=== PATIENT | female | born 1960 | race African-American/Black ===

== ENCOUNTER 2017-12-09 06:18 | Day surgery (SDC) | payer OTHER ==
[2017-12-09] MEDS ORDERED: HEPARIN 1000 UNITS/NS (A-LINE) 1,000 ML (07:10)
[2017-12-09] MEDS ORDERED: FENTAnyl 50 MCG/ML VIAL (07:10)
[2017-12-09] MEDS ORDERED: LIDOCAINE 1% (MDV) 10 ML INJ (07:10)
[2017-12-09] MEDS ORDERED: CEFAZOLIN 1 GM/50 ML (PMX) 50 ML IVPB (07:10)
[2017-12-09] MEDS ORDERED: MIDAZOLAM 1 MG/ML 2 ML INJ (07:10)
[2017-12-09] MEDS ORDERED: POLYMYXIN/BACITRACIN 1L IRRIG (07:13)
[2017-12-09] MEDS ORDERED: HEPARIN 1000 UNITS/ML 10 ML INJ (08:11)
[2017-12-09] MEDS ORDERED: HYDROCODONE/APAP (10/325) TAB PO (11:30)
== END 2017-12-09 12:00 | disposition home or self-care (01) ==
LOC: CCL 06:18 → SDS 06:18 → CCL 12:00
DX: C76.0 Malignant neoplasm of head, face and neck (principal)
CPT/HCPCS: 36561; 75827

== ENCOUNTER 2018-05-25 12:09 | Inpatient (IN) | payer OTHER ==
[2018-05-25 13:29] LABS: ADD MAN DIFF? NO
[2018-05-25 13:36] LABS: WHITE BLOOD COUNT 4.8 10^3/ul (4.8-10.8)
[2018-05-25 13:36] LABS: BASOPHIL # 0.1 10^3/ul (0.0-0.1); EOSINOPHILS # 0.3 10^3/ul (0.0-0.5); EOSINOPHILS % 5.4 % (0.0-7.0); HEMATOCRIT 33.1 % (37.0-47.0); HEMOGLOBIN 10.7 g/dl (12.0-16.0); LYMPHOCYTES # 0.7 10^3/ul (0.8-2.9); LYMPHOCYTES % 14.8 % (15.0-51.0); MEAN CORPUSCULAR HEMOGLOBIN 32.7 pg (29.0-33.0); MEAN CORPUSCULAR HGB CONC 32.3 g/dl (32.0-37.0); MEAN CORPUSCULAR VOLUME 101.2 fl (82.0-101.0); MONOCYTE # 0.6 10^3/ul (0.3-0.9); MONOCYTES % 12.5 % (0.0-11.0); NEUTROPHIL # 3.1 10^3/ul (1.6-7.5); NEUTROPHILS % 65.7 % (39.0-77.0); PLATELET COUNT 288 10^3/UL (140-415); RED BLOOD COUNT 3.27 10^6/ul (4.20-5.40); RED CELL DISTRIBUTION WIDTH 16.6 % (11.5-14.5)
[2018-05-25 13:53] LABS: ANION GAP 14 (5-13); BLOOD UREA NITROGEN 5 mg/dl (7-20); CALCIUM 8.9 mg/dl (8.4-10.2); CARBON DIOXIDE 26 mmol/L (21-31); CHLORIDE 100 mmol/L (97-110); CREATININE 0.51 mg/dl (0.44-1.00); Estimated GFR > 60 mL/min (>60); GLUCOSE 77 mg/dl (70-220); POTASSIUM 3.7 mmol/L (3.5-5.1); SODIUM 140 mmol/L (135-144)
[2018-05-25 13:55] LABS: INR 1.03; PROTIME 13.6 Sec (11.9-14.9); PT RATIO 1.1
[2018-05-25] MEDS: PIPER-TAZO 3.375 GM IV (PMX) 100 ML IVPB (15:00)
[2018-05-25] MEDS: SOD CHLORIDE 0.9% 500 ML IV (15:00)
[2018-05-25] MEDS ORDERED: VANCOMYCIN 1 GM (PMX) 250 ML IVPB (15:00)
[2018-05-25] MEDS ORDERED: PIPER-TAZO 3.375 GM IV (PMX) 100 ML IVPB ×2 (15:00→18:00)
[2018-05-25] MEDS: SOD CHLORIDE 0.9% 100 ML (15:28)
[2018-05-25] MEDS: IOHEXOL 300MG/ML 150 ML BTL (15:28)
[2018-05-25] MEDS ORDERED: VANCOMYCIN IV PER PHARMACY XX (15:30)
[2018-05-25] MEDS ORDERED: OXYCODONE/ACETAMINOPHEN (5/325) TAB PO (15:30)
[2018-05-25] MEDS: LORAZEPAM 2 MG INJ IV ×2 (15:52→23:36)
[2018-05-25] MEDS: HYDROmorphONE 0.5 MG/0.5 ML SYG IV (15:59)
[2018-05-25] MEDS: SOD CHLORIDE 0.9% 1,000 ML IV (17:37)
[2018-05-25] MEDS: VANCOMYCIN 1 GM 250 ML IVPB (17:41)
[2018-05-25] MEDS ORDERED: HYDROmorphONE 1 MG/ML SYG (19:06)
[2018-05-25] MEDS: HYDROmorphONE 1 MG/ML SYG IV (19:07)
[2018-05-25] MEDS: HYDROmorphONE 2 MG/ML SYG IV (21:51)
[2018-05-26] MEDS: PIPER-TAZO 3.375 GM IV (PMX) 100 ML IVPB ×5 (01:27→23:35)
[2018-05-26] MEDS: HYDROmorphONE 2 MG/ML SYG IV ×7 (03:29→22:26)
[2018-05-26] MEDS: PANTOPRAZOLE 40 MG INJ IV (06:24)
[2018-05-26] MEDS: VANCOMYCIN 750 MG in SOD CHLORIDE 0.9% 150 ML IVPB ×2 (07:13→18:38)
[2018-05-26] MEDS: IOHEXOL 300MG/ML 150 ML BTL (10:19)
[2018-05-26] MEDS: SOD CHLORIDE 0.9% 100 ML (10:19)
[2018-05-26 11:24] LABS: ADD MAN DIFF? NO
[2018-05-26 11:27] LABS: WHITE BLOOD COUNT 4.6 10^3/ul (4.8-10.8)
[2018-05-26 11:27] LABS: ABNORMAL IP MESSAGE 1; BASOPHILS % 0.9 % (0.0-2.0); EOSINOPHILS # 0.2 10^3/ul (0.0-0.5); EOSINOPHILS % 4.6 % (0.0-7.0); HEMATOCRIT 32.4 % (37.0-47.0); HEMOGLOBIN 10.6 g/dl (12.0-16.0); LYMPHOCYTES # 0.5 10^3/ul (0.8-2.9); LYMPHOCYTES % 11.8 % (15.0-51.0); MEAN CORPUSCULAR HGB CONC 32.7 g/dl (32.0-37.0); MEAN CORPUSCULAR VOLUME 100.9 fl (82.0-101.0); MONOCYTE # 0.5 10^3/ul (0.3-0.9); MONOCYTES % 10.5 % (0.0-11.0); NEUTROPHIL # 3.3 10^3/ul (1.6-7.5); PLATELET COUNT 257 10^3/UL (140-415); RED BLOOD COUNT 3.21 10^6/ul (4.20-5.40); RED CELL DISTRIBUTION WIDTH 16.5 % (11.5-14.5)
[2018-05-26 11:42] LABS: POSITIVE DIFF @See below
[2018-05-26 11:48] LABS: ALANINE AMINOTRANSFERASE 8 IU/L (13-69); ALBUMIN 2.8 g/dl (3.3-4.9); ALBUMIN/GLOBULIN RATIO 0.82; ALKALINE PHOSPHATASE 156 IU/L (42-121); ANION GAP 7 (5-13); ASPARTATE AMINO TRANSFERASE 26 IU/L (15-46); BILIRUBIN,INDIRECT 0.2 mg/dl (0-1.1); BILIRUBIN,TOTAL 0.2 mg/dl (0.2-1.3); BLOOD UREA NITROGEN 5 mg/dl (7-20); CALCIUM 8.4 mg/dl (8.4-10.2); CARBON DIOXIDE 27 mmol/L (21-31); CHLORIDE 103 mmol/L (97-110); CREATININE 0.49 mg/dl (0.44-1.00); Estimated GFR > 60 mL/min (>60); GLUCOSE 102 mg/dl (70-220); MAGNESIUM 1.8 mg/dl (1.7-2.5); POTASSIUM 3.8 mmol/L (3.5-5.1); SODIUM 137 mmol/L (135-144); TOTAL PROTEIN 6.2 g/dl (6.1-8.1)
[2018-05-26] MEDS: LORAZEPAM 2 MG INJ IV ×2 (12:45→20:28)
[2018-05-26] MEDS: NICOTINE (21 MG/24 HR) PATCH TRANSDERM (14:14)
[2018-05-26] MEDS: SOD CHLORIDE 0.9% 1,000 ML IV (15:03)
[2018-05-26] MEDS: ZOLPIDEM 5 MG TAB PO (22:23)
[2018-05-27] MEDS: HYDROmorphONE 2 MG/ML SYG IV ×9 (02:01→22:11)
[2018-05-27] MEDS: LORAZEPAM 2 MG INJ IV ×2 (03:12→08:26)
[2018-05-27] MEDS: SOD CHLORIDE 0.9% 1,000 ML IV ×2 (03:43)
[2018-05-27] MEDS: PIPER-TAZO 3.375 GM IV (PMX) 100 ML IVPB ×3 (05:01→17:36)
[2018-05-27] MEDS: PANTOPRAZOLE 40 MG INJ IV (05:01)
[2018-05-27 05:43] LABS: ADD MAN DIFF? NO
[2018-05-27 05:45] LABS: BASOPHILS % 0.9 % (0.0-2.0); EOSINOPHILS # 0.3 10^3/ul (0.0-0.5); EOSINOPHILS % 5.4 % (0.0-7.0); HEMATOCRIT 31.8 % (37.0-47.0); HEMOGLOBIN 10.6 g/dl (12.0-16.0); LYMPHOCYTES # 0.6 10^3/ul (0.8-2.9); LYMPHOCYTES % 13.4 % (15.0-51.0); MEAN CORPUSCULAR HEMOGLOBIN 33.1 pg (29.0-33.0); MEAN CORPUSCULAR HGB CONC 33.3 g/dl (32.0-37.0); MEAN CORPUSCULAR VOLUME 99.4 fl (82.0-101.0); MONOCYTE # 0.5 10^3/ul (0.3-0.9); NEUTROPHIL # 3.2 10^3/ul (1.6-7.5); NEUTROPHILS % 69.1 % (39.0-77.0); PLATELET COUNT 296 10^3/UL (140-415); RED CELL DISTRIBUTION WIDTH 15.9 % (11.5-14.5)
[2018-05-27 05:45] LABS: WHITE BLOOD COUNT 4.6 10^3/ul (4.8-10.8)
[2018-05-27] MEDS: VANCOMYCIN 750 MG in SOD CHLORIDE 0.9% 150 ML IVPB (06:03)
[2018-05-27 06:23] LABS: ANION GAP 6 (5-13); CALCIUM 8.3 mg/dl (8.4-10.2); CARBON DIOXIDE 27 mmol/L (21-31); CHLORIDE 104 mmol/L (97-110); CREATININE 0.48 mg/dl (0.44-1.00); Estimated GFR > 60 mL/min (>60); GLUCOSE 84 mg/dl (70-220); MAGNESIUM 1.6 mg/dl (1.7-2.5); PHOSPHORUS 3.9 mg/dl (2.5-4.9); POTASSIUM 3.2 mmol/L (3.5-5.1); SODIUM 137 mmol/L (135-144)
[2018-05-27 06:27] LABS: BLOOD UREA NITROGEN < 2 mg/dl (7-20)
[2018-05-27 06:28] LABS: VANCOMYCIN,TROUGH 9.1 ug/ml (10.0-20.0)
[2018-05-27] MEDS: NICOTINE (21 MG/24 HR) PATCH TRANSDERM (07:35)
[2018-05-27] MEDS: POTASSIUM CHLORIDE (SR) 20 MEQ TAB PO ×2 (11:10→13:30)
[2018-05-27] MEDS: MAGNESIUM SULFATE 2 GM/50 ML 50 ML IVPB (11:11)
[2018-05-27] MEDS: METHYLPREDNISOLONE 125 MG INJ IV ×2 (13:09→17:35)
[2018-05-27] MEDS: VANCOMYCIN 1 GM 250 ML IVPB (18:04)
[2018-05-27] MEDS: LORAZEPAM 0.5 MG TAB PO (18:29)
[2018-05-27] MEDS: traZODone 50 MG TAB PO (22:11)
[2018-05-28] MEDS: HYDROmorphONE 2 MG/ML SYG IV ×12 (00:10→23:04)
[2018-05-28] MEDS: METHYLPREDNISOLONE 125 MG INJ IV ×4 (00:19→20:30)
[2018-05-28] MEDS: PIPER-TAZO 3.375 GM IV (PMX) 100 ML IVPB ×5 (00:19→23:09)
[2018-05-28] MEDS: VANCOMYCIN 1 GM 250 ML IVPB ×2 (05:08→18:09)
[2018-05-28] MEDS: PANTOPRAZOLE (EC) 40 MG TAB PO (05:09)
[2018-05-28 07:25] LABS: ADD MAN DIFF? NO
[2018-05-28 07:27] LABS: WHITE BLOOD COUNT 5.9 10^3/ul (4.8-10.8)
[2018-05-28 07:27] LABS: ABNORMAL IP MESSAGE 1; BASOPHILS % 0.2 % (0.0-2.0); HEMATOCRIT 36.9 % (37.0-47.0); HEMOGLOBIN 12.4 g/dl (12.0-16.0); LYMPHOCYTES # 0.4 10^3/ul (0.8-2.9); LYMPHOCYTES % 5.9 % (15.0-51.0); MEAN CORPUSCULAR HEMOGLOBIN 33.2 pg (29.0-33.0); MEAN CORPUSCULAR HGB CONC 33.6 g/dl (32.0-37.0); MEAN CORPUSCULAR VOLUME 98.9 fl (82.0-101.0); MEAN PLATELET VOLUME 10.6 fl (7.4-10.4); MONOCYTE # 0.1 10^3/ul (0.3-0.9); MONOCYTES % 1.5 % (0.0-11.0); NEUTROPHIL # 5.5 10^3/ul (1.6-7.5); NEUTROPHILS % 92.1 % (39.0-77.0); PLATELET COUNT 366 10^3/UL (140-415); RED BLOOD COUNT 3.73 10^6/ul (4.20-5.40); RED CELL DISTRIBUTION WIDTH 15.6 % (11.5-14.5)
[2018-05-28 07:31] LABS: POSITIVE DIFF @See below
[2018-05-28] MEDS: NICOTINE (21 MG/24 HR) PATCH TRANSDERM (08:12)
[2018-05-28 08:22] LABS: ANION GAP 10 (5-13); BLOOD UREA NITROGEN 3 mg/dl (7-20); CALCIUM 8.9 mg/dl (8.4-10.2); CARBON DIOXIDE 22 mmol/L (21-31); CHLORIDE 105 mmol/L (97-110); CREATININE 0.52 mg/dl (0.44-1.00); Estimated GFR > 60 mL/min (>60); GLUCOSE 166 mg/dl (70-220); MAGNESIUM 1.8 mg/dl (1.7-2.5); PHOSPHORUS 3.9 mg/dl (2.5-4.9); POTASSIUM 3.5 mmol/L (3.5-5.1); SODIUM 137 mmol/L (135-144)
[2018-05-28] MEDS: LORAZEPAM 0.5 MG TAB PO ×3 (10:26→23:03)
[2018-05-28] MEDS: POTASSIUM CHLORIDE (SR) 20 MEQ TAB PO (12:29)
[2018-05-28] MEDS: MAGNESIUM OXIDE 400 MG TAB PO (12:29)
[2018-05-28] MEDS: SOD CHLORIDE 0.9% 1,000 ML IV ×2 (15:03→18:09)
[2018-05-28] MEDS: ONDANSETRON 4 MG INJ IV ×2 (17:17→20:47)
[2018-05-28] MEDS: traZODone 50 MG TAB PO (20:30)
[2018-05-28] MEDS: ZOLPIDEM 5 MG TAB PO (20:31)
[2018-05-28] MEDS: ACETAMINOPHEN 325 MG TAB PO (20:46)
[2018-05-29] MEDS: HYDROmorphONE 2 MG/ML SYG IV ×9 (01:06→21:40)
[2018-05-29 04:59] LABS: ADD MAN DIFF? NO
[2018-05-29 05:00] LABS: WHITE BLOOD COUNT 11.3 10^3/ul (4.8-10.8)
[2018-05-29 05:00] LABS: ABNORMAL IP MESSAGE 1; BASOPHILS % 0.1 % (0.0-2.0); HEMATOCRIT 34.9 % (37.0-47.0); HEMOGLOBIN 11.2 g/dl (12.0-16.0); LYMPHOCYTES # 0.2 10^3/ul (0.8-2.9); LYMPHOCYTES % 1.9 % (15.0-51.0); MEAN CORPUSCULAR HEMOGLOBIN 32.8 pg (29.0-33.0); MEAN CORPUSCULAR HGB CONC 32.1 g/dl (32.0-37.0); MEAN CORPUSCULAR VOLUME 102.3 fl (82.0-101.0); MEAN PLATELET VOLUME 10.3 fl (7.4-10.4); MONOCYTE # 0.5 10^3/ul (0.3-0.9); NEUTROPHIL # 10.6 10^3/ul (1.6-7.5); NEUTROPHILS % 93.7 % (39.0-77.0); PLATELET COUNT 298 10^3/UL (140-415); RED BLOOD COUNT 3.41 10^6/ul (4.20-5.40); RED CELL DISTRIBUTION WIDTH 16.2 % (11.5-14.5)
[2018-05-29 05:03] LABS: POSITIVE DIFF @See below
[2018-05-29] MEDS: PIPER-TAZO 3.375 GM IV (PMX) 100 ML IVPB ×2 (05:13→12:15)
[2018-05-29] MEDS: PANTOPRAZOLE (EC) 40 MG TAB PO (05:14)
[2018-05-29] MEDS: LORAZEPAM 0.5 MG TAB PO ×2 (05:14→20:22)
[2018-05-29 05:18] LABS: ANION GAP 8 (5-13); BLOOD UREA NITROGEN 11 mg/dl (7-20); CALCIUM 8.8 mg/dl (8.4-10.2); CARBON DIOXIDE 21 mmol/L (21-31); CHLORIDE 111 mmol/L (97-110); CREATININE 1.01 mg/dl (0.44-1.00); Estimated GFR > 60 mL/min (>60); GLUCOSE 147 mg/dl (70-220); MAGNESIUM 1.9 mg/dl (1.7-2.5); PHOSPHORUS 4.1 mg/dl (2.5-4.9); POTASSIUM 3.8 mmol/L (3.5-5.1); SODIUM 140 mmol/L (135-144)
[2018-05-29 05:26] LABS: VANCOMYCIN,TROUGH 26.5 ug/ml (10.0-20.0)
[2018-05-29] MEDS: NICOTINE (21 MG/24 HR) PATCH TRANSDERM (08:35)
[2018-05-29] MEDS: METHYLPREDNISOLONE 125 MG INJ IV (08:35)
[2018-05-29] MEDS: VENLAFAXINE 37.5 MG TAB PO (12:33)
[2018-05-29] MEDS: VANCOMYCIN 1 GM 250 ML IVPB (17:22)
[2018-05-29] MEDS: traZODone 50 MG TAB PO (20:22)
[2018-05-30] MEDS: SOD CHLORIDE 0.9% 1,000 ML IV (00:11)
[2018-05-30] MEDS: HYDROmorphONE 2 MG/ML SYG IV ×10 (01:21→23:45)
[2018-05-30] MEDS: LORAZEPAM 0.5 MG TAB PO ×2 (04:26→14:41)
[2018-05-30] MEDS: ACETAMINOPHEN 325 MG TAB PO (04:26)
[2018-05-30] MEDS: PANTOPRAZOLE (EC) 40 MG TAB PO (05:09)
[2018-05-30 06:10] LABS: ADD MAN DIFF? NO
[2018-05-30 06:25] LABS: BASOPHILS % 0.1 % (0.0-2.0); EOSINOPHILS % 0.3 % (0.0-7.0); HEMOGLOBIN 11.2 g/dl (12.0-16.0); LYMPHOCYTES # 0.8 10^3/ul (0.8-2.9); LYMPHOCYTES % 10.6 % (15.0-51.0); MEAN CORPUSCULAR HEMOGLOBIN 32.9 pg (29.0-33.0); MEAN CORPUSCULAR VOLUME 102.9 fl (82.0-101.0); MEAN PLATELET VOLUME 10.7 fl (7.4-10.4); MONOCYTE # 0.9 10^3/ul (0.3-0.9); MONOCYTES % 12.2 % (0.0-11.0); NEUTROPHIL # 5.6 10^3/ul (1.6-7.5); NEUTROPHILS % 76.5 % (39.0-77.0); PLATELET COUNT 315 10^3/UL (140-415)
[2018-05-30 06:25] LABS: WHITE BLOOD COUNT 7.3 10^3/ul (4.8-10.8)
[2018-05-30 06:53] LABS: ANION GAP 8 (5-13); BLOOD UREA NITROGEN 14 mg/dl (7-20); CALCIUM 8.7 mg/dl (8.4-10.2); CARBON DIOXIDE 24 mmol/L (21-31); CHLORIDE 110 mmol/L (97-110); CREATININE 0.92 mg/dl (0.44-1.00); Estimated GFR > 60 mL/min (>60); GLUCOSE 85 mg/dl (70-220); MAGNESIUM 1.8 mg/dl (1.7-2.5); PHOSPHORUS 3.3 mg/dl (2.5-4.9); POTASSIUM 3.1 mmol/L (3.5-5.1); SODIUM 142 mmol/L (135-144)
[2018-05-30] MEDS: METHYLPREDNISOLONE 125 MG INJ IV (08:49)
[2018-05-30] MEDS: VENLAFAXINE 37.5 MG TAB PO (08:49)
[2018-05-30] MEDS: POTASSIUM CHLORIDE (SR) 20 MEQ TAB PO ×2 (08:49→13:15)
[2018-05-30] MEDS: NICOTINE (21 MG/24 HR) PATCH TRANSDERM (08:56)
[2018-05-30] MEDS: ONDANSETRON 4 MG INJ IV (13:15)
[2018-05-30] MEDS: VANCOMYCIN 1 GM 250 ML IVPB (17:32)
[2018-05-30] MEDS: ENOXAPARIN 40 MG/0.4 ML SYG SC (17:37)
[2018-05-30] MEDS: traZODone 50 MG TAB PO (21:39)
[2018-05-30] MEDS: ZOLPIDEM 5 MG TAB PO (21:39)
[2018-05-31] MEDS: HYDROmorphONE 2 MG/ML SYG IV ×11 (02:08→23:38)
[2018-05-31] MEDS: SOD CHLORIDE 0.9% 1,000 ML IV ×2 (02:08→17:25)
[2018-05-31] MEDS: LORAZEPAM 0.5 MG TAB PO ×3 (03:26→23:37)
[2018-05-31 06:06] LABS: ADD MAN DIFF? NO
[2018-05-31] MEDS: PANTOPRAZOLE (EC) 40 MG TAB PO (06:08)
[2018-05-31 06:13] LABS: BASOPHILS % 0.4 % (0.0-2.0); EOSINOPHILS # 0.2 10^3/ul (0.0-0.5); EOSINOPHILS % 4.4 % (0.0-7.0); HEMATOCRIT 34.7 % (37.0-47.0); HEMOGLOBIN 11.5 g/dl (12.0-16.0); LYMPHOCYTES # 0.7 10^3/ul (0.8-2.9); LYMPHOCYTES % 14.7 % (15.0-51.0); MEAN CORPUSCULAR HEMOGLOBIN 33.5 pg (29.0-33.0); MEAN CORPUSCULAR HGB CONC 33.1 g/dl (32.0-37.0); MEAN CORPUSCULAR VOLUME 101.2 fl (82.0-101.0); MEAN PLATELET VOLUME 10.8 fl (7.4-10.4); MONOCYTE # 0.8 10^3/ul (0.3-0.9); MONOCYTES % 16.7 % (0.0-11.0); NEUTROPHIL # 3.2 10^3/ul (1.6-7.5); NEUTROPHILS % 63.4 % (39.0-77.0); PLATELET COUNT 319 10^3/UL (140-415); RED BLOOD COUNT 3.43 10^6/ul (4.20-5.40); RED CELL DISTRIBUTION WIDTH 15.9 % (11.5-14.5)
[2018-05-31 07:01] LABS: PHOSPHORUS 3.4 mg/dl (2.5-4.9)
[2018-05-31 07:01] LABS: MAGNESIUM 1.6 mg/dl (1.7-2.5)
[2018-05-31 07:03] LABS: ANION GAP 6 (5-13); BLOOD UREA NITROGEN 8 mg/dl (7-20); CALCIUM 8.6 mg/dl (8.4-10.2); CARBON DIOXIDE 25 mmol/L (21-31); CHLORIDE 109 mmol/L (97-110); CREATININE 0.78 mg/dl (0.44-1.00); Estimated GFR > 60 mL/min (>60); GLUCOSE 83 mg/dl (70-220); POTASSIUM 3.4 mmol/L (3.5-5.1); SODIUM 140 mmol/L (135-144)
[2018-05-31] MEDS: NICOTINE (21 MG/24 HR) PATCH TRANSDERM (08:27)
[2018-05-31] MEDS: METHYLPREDNISOLONE 40 MG INJ IV (08:27)
[2018-05-31] MEDS: VENLAFAXINE 37.5 MG TAB PO (08:27)
[2018-05-31] MEDS: ENOXAPARIN 40 MG/0.4 ML SYG SC (08:48)
[2018-05-31] MEDS: VANCOMYCIN 1 GM 250 ML IVPB (17:19)
[2018-05-31] MEDS: POTASSIUM CHLORIDE (SR) 20 MEQ TAB PO (17:19)
[2018-05-31] MEDS: ZOLPIDEM 5 MG TAB PO (20:16)
[2018-05-31] MEDS: MAGNESIUM SULFATE 3 GM in DEXTROSE 5% 100 ML IVPB (20:17)
[2018-05-31] MEDS: traZODone 50 MG TAB PO (21:37)
[2018-06-01] MEDS: HYDROmorphONE 2 MG/ML SYG IV ×11 (01:59→22:17)
[2018-06-01] MEDS: PANTOPRAZOLE (EC) 40 MG TAB PO (06:12)
[2018-06-01 06:18] LABS: MAGNESIUM 2.6 mg/dl (1.7-2.5)
[2018-06-01 06:19] LABS: ANION GAP 6 (5-13); BLOOD UREA NITROGEN 10 mg/dl (7-20); CALCIUM 8.3 mg/dl (8.4-10.2); CARBON DIOXIDE 24 mmol/L (21-31); CHLORIDE 108 mmol/L (97-110); CREATININE 1.21 mg/dl (0.44-1.00); Estimated GFR 56 mL/min (>60); GLUCOSE 93 mg/dl (70-220); POTASSIUM 3.6 mmol/L (3.5-5.1); SODIUM 138 mmol/L (135-144)
[2018-06-01] MEDS: VENLAFAXINE 37.5 MG TAB PO (08:25)
[2018-06-01] MEDS: METHYLPREDNISOLONE 40 MG INJ IV (08:25)
[2018-06-01] MEDS: NICOTINE (21 MG/24 HR) PATCH TRANSDERM (08:25)
[2018-06-01] MEDS: ENOXAPARIN 40 MG/0.4 ML SYG SC (08:38)
[2018-06-01] MEDS: LORAZEPAM 0.5 MG TAB PO ×2 (13:49→20:54)
[2018-06-01] MEDS: ONDANSETRON 4 MG INJ IV (14:23)
[2018-06-01 18:31] LABS: VANCOMYCIN,TROUGH 18.9 ug/ml (10.0-20.0)
[2018-06-01] MEDS: VANCOMYCIN 1 GM 250 ML IVPB (19:03)
[2018-06-01] MEDS: traZODone 50 MG TAB PO (20:26)
[2018-06-01] MEDS: ZOLPIDEM 5 MG TAB PO (20:54)
[2018-06-02] MEDS: HYDROmorphONE 2 MG/ML SYG IV ×11 (00:41→21:31)
[2018-06-02 05:30] LABS: ADD MAN DIFF? NO
[2018-06-02 05:33] LABS: WHITE BLOOD COUNT 7.3 10^3/ul (4.8-10.8)
[2018-06-02 05:33] LABS: ABNORMAL IP MESSAGE 1; BASOPHILS % 0.3 % (0.0-2.0); EOSINOPHILS # 0.4 10^3/ul (0.0-0.5); EOSINOPHILS % 5.1 % (0.0-7.0); HEMATOCRIT 20.7 % (37.0-47.0); LYMPHOCYTES % 13.6 % (15.0-51.0); MEAN CORPUSCULAR HGB CONC 32.4 g/dl (32.0-37.0); MEAN PLATELET VOLUME 10.8 fl (7.4-10.4); MONOCYTE # 1.3 10^3/ul (0.3-0.9); MONOCYTES % 17.3 % (0.0-11.0); NEUTROPHIL # 4.6 10^3/ul (1.6-7.5); NEUTROPHILS % 63.2 % (39.0-77.0); PLATELET COUNT 439 10^3/UL (140-415); RED BLOOD COUNT 2.03 10^6/ul (4.20-5.40); RED CELL DISTRIBUTION WIDTH 15.2 % (11.5-14.5)
[2018-06-02] MEDS: PANTOPRAZOLE (EC) 40 MG TAB PO (05:33)
[2018-06-02 05:39] LABS: POSITIVE DIFF @See below
[2018-06-02 05:42] LABS: HEMOGLOBIN 6.7 g/dl (12.0-16.0)
[2018-06-02 05:57] LABS: PHOSPHORUS 4.3 mg/dl (2.5-4.9)
[2018-06-02 05:57] LABS: MAGNESIUM 2.2 mg/dl (1.7-2.5)
[2018-06-02 06:19] LABS: ANION GAP 6 (5-13); BLOOD UREA NITROGEN 13 mg/dl (7-20); CALCIUM 8.4 mg/dl (8.4-10.2); CARBON DIOXIDE 21 mmol/L (21-31); CHLORIDE 110 mmol/L (97-110); CREATININE 1.91 mg/dl (0.44-1.00); Estimated GFR 33 mL/min (>60); GLUCOSE 87 mg/dl (70-220); POTASSIUM 3.3 mmol/L (3.5-5.1); SODIUM 137 mmol/L (135-144)
[2018-06-02 06:42] LABS: ADD MAN DIFF? NO
[2018-06-02 06:57] LABS: BASOPHILS % 0.2 % (0.0-2.0); EOSINOPHILS # 0.3 10^3/ul (0.0-0.5); EOSINOPHILS % 5.4 % (0.0-7.0); HEMATOCRIT 36.4 % (37.0-47.0); LYMPHOCYTES # 0.7 10^3/ul (0.8-2.9); LYMPHOCYTES % 12.5 % (15.0-51.0); MEAN CORPUSCULAR HEMOGLOBIN 33.1 pg (29.0-33.0); MEAN CORPUSCULAR VOLUME 100.3 fl (82.0-101.0); MEAN PLATELET VOLUME 10.8 fl (7.4-10.4); MONOCYTE # 0.9 10^3/ul (0.3-0.9); MONOCYTES % 17.1 % (0.0-11.0); NEUTROPHIL # 3.6 10^3/ul (1.6-7.5); NEUTROPHILS % 64.4 % (39.0-77.0); PLATELET COUNT 354 10^3/UL (140-415); RED BLOOD COUNT 3.63 10^6/ul (4.20-5.40); RED CELL DISTRIBUTION WIDTH 15.4 % (11.5-14.5)
[2018-06-02 06:57] LABS: WHITE BLOOD COUNT 5.5 10^3/ul (4.8-10.8)
[2018-06-02] MEDS: NICOTINE (21 MG/24 HR) PATCH TRANSDERM (08:36)
[2018-06-02] MEDS: predniSONE 10 MG TAB PO (08:37)
[2018-06-02] MEDS: VENLAFAXINE 37.5 MG TAB PO (08:37)
[2018-06-02] MEDS: ACETAMINOPHEN 325 MG TAB PO (08:41)
[2018-06-02] MEDS: ENOXAPARIN 40 MG/0.4 ML SYG SC (08:45)
[2018-06-02] MEDS: POTASSIUM CHLORIDE (SR) 20 MEQ TAB PO (10:02)
[2018-06-02] MEDS: SOD CHLORIDE 0.9% 1,000 ML IV ×2 (10:03→23:55)
[2018-06-02] MEDS: LORAZEPAM 0.5 MG TAB PO ×2 (12:40→20:05)
[2018-06-02] MEDS: traZODone 50 MG TAB PO (20:05)
[2018-06-02] MEDS: ZOLPIDEM 5 MG TAB PO (22:04)
[2018-06-03] MEDS: HYDROmorphONE 2 MG/ML SYG IV ×11 (00:23→21:41)
[2018-06-03] MEDS: PANTOPRAZOLE (EC) 40 MG TAB PO (05:58)
[2018-06-03] MEDS: LORAZEPAM 0.5 MG TAB PO ×3 (05:58→23:03)
[2018-06-03] MEDS ORDERED: VANCOMYCIN 1 GM 250 ML IVPB (06:00)
[2018-06-03 06:03] LABS: ADD MAN DIFF? NO
[2018-06-03 06:21] LABS: WHITE BLOOD COUNT 5.9 10^3/ul (4.8-10.8)
[2018-06-03 06:21] LABS: BASOPHILS % 0.2 % (0.0-2.0); EOSINOPHILS # 0.3 10^3/ul (0.0-0.5); EOSINOPHILS % 5.1 % (0.0-7.0); HEMATOCRIT 32.5 % (37.0-47.0); HEMOGLOBIN 10.9 g/dl (12.0-16.0); LYMPHOCYTES # 0.7 10^3/ul (0.8-2.9); LYMPHOCYTES % 12.1 % (15.0-51.0); MEAN CORPUSCULAR HEMOGLOBIN 33.3 pg (29.0-33.0); MEAN CORPUSCULAR HGB CONC 33.5 g/dl (32.0-37.0); MEAN CORPUSCULAR VOLUME 99.4 fl (82.0-101.0); MEAN PLATELET VOLUME 10.7 fl (7.4-10.4); MONOCYTES % 17.4 % (0.0-11.0); NEUTROPHIL # 3.9 10^3/ul (1.6-7.5); PLATELET COUNT 312 10^3/UL (140-415); RED BLOOD COUNT 3.27 10^6/ul (4.20-5.40); RED CELL DISTRIBUTION WIDTH 14.9 % (11.5-14.5)
[2018-06-03 07:15] LABS: ANION GAP 4 (5-13); BLOOD UREA NITROGEN 13 mg/dl (7-20); CALCIUM 8.3 mg/dl (8.4-10.2); CARBON DIOXIDE 19 mmol/L (21-31); CHLORIDE 114 mmol/L (97-110); CREATININE 2.23 mg/dl (0.44-1.00); Estimated GFR 28 mL/min (>60); GLUCOSE 84 mg/dl (70-220); POTASSIUM 3.7 mmol/L (3.5-5.1); SODIUM 137 mmol/L (135-144)
[2018-06-03] MEDS: predniSONE 10 MG TAB PO (08:18)
[2018-06-03] MEDS: VENLAFAXINE 75 MG TABLET PO (08:18)
[2018-06-03] MEDS: NICOTINE (21 MG/24 HR) PATCH TRANSDERM (08:19)
[2018-06-03] MEDS: ENOXAPARIN 30 MG/0.3 ML SYG SC (08:22)
[2018-06-03] MEDS: SOD CHLORIDE 0.9% 1,000 ML IV ×2 (14:06→16:36)
[2018-06-03] MEDS: ONDANSETRON 4 MG INJ IV (17:23)
[2018-06-03] MEDS: ZOLPIDEM 5 MG TAB PO (20:31)
[2018-06-03] MEDS: traZODone 50 MG TAB PO (20:31)
[2018-06-04] MEDS: HYDROmorphONE 2 MG/ML SYG IV ×8 (00:28→21:58)
[2018-06-04] MEDS: PANTOPRAZOLE (EC) 40 MG TAB PO (05:14)
[2018-06-04] MEDS: LORAZEPAM 0.5 MG TAB PO ×3 (05:56→19:45)
[2018-06-04 07:22] LABS: ADD MAN DIFF? NO
[2018-06-04 07:27] LABS: BASOPHILS % 0.3 % (0.0-2.0); EOSINOPHILS # 0.3 10^3/ul (0.0-0.5); EOSINOPHILS % 4.4 % (0.0-7.0); HEMATOCRIT 32.7 % (37.0-47.0); LYMPHOCYTES # 0.8 10^3/ul (0.8-2.9); LYMPHOCYTES % 12.8 % (15.0-51.0); MEAN CORPUSCULAR HEMOGLOBIN 33.3 pg (29.0-33.0); MEAN CORPUSCULAR HGB CONC 33.6 g/dl (32.0-37.0); MEAN CORPUSCULAR VOLUME 99.1 fl (82.0-101.0); MEAN PLATELET VOLUME 11.2 fl (7.4-10.4); MONOCYTE # 1.1 10^3/ul (0.3-0.9); MONOCYTES % 19.3 % (0.0-11.0); NEUTROPHIL # 3.7 10^3/ul (1.6-7.5); NEUTROPHILS % 62.9 % (39.0-77.0); PLATELET COUNT 338 10^3/UL (140-415); RED CELL DISTRIBUTION WIDTH 14.6 % (11.5-14.5)
[2018-06-04 07:27] LABS: WHITE BLOOD COUNT 5.9 10^3/ul (4.8-10.8)
[2018-06-04 07:47] LABS: ANION GAP 9 (5-13); BLOOD UREA NITROGEN 13 mg/dl (7-20); CALCIUM 8.5 mg/dl (8.4-10.2); CARBON DIOXIDE 21 mmol/L (21-31); CHLORIDE 109 mmol/L (97-110); CREATININE 2.44 mg/dl (0.44-1.00); Estimated GFR 25 mL/min (>60); GLUCOSE 81 mg/dl (70-220); POTASSIUM 3.4 mmol/L (3.5-5.1); SODIUM 139 mmol/L (135-144)
[2018-06-04] MEDS: VENLAFAXINE 75 MG TABLET PO (08:19)
[2018-06-04] MEDS: NICOTINE (21 MG/24 HR) PATCH TRANSDERM (08:20)
[2018-06-04] MEDS: predniSONE 10 MG TAB PO (08:20)
[2018-06-04] MEDS: SOD CHLORIDE 0.9% 1,000 ML IV ×2 (10:49→16:58)
[2018-06-04] MEDS: POTASSIUM CHLORIDE 20 MEQ POWDER FOR ORAL SOLN PO (15:53)
[2018-06-04 17:21] LABS: ADD UMIC YES; UR ASCORBIC ACID NEGATIVE (NEGATIVE); UR BACTERIA FEW /HPF (NONE SEEN); UR BILIRUBIN (Dip) NEGATIVE (NEGATIVE); UR BLOOD (Dip) 1+ mg/dL (NEGATIVE); UR BUDDING YEAST FEW /HPF (NONE SEEN); UR CLARITY CLEAR (CLEAR); UR COLOR STRAW (YELLOW); UR GLUCOSE (Dip) NEGATIVE (NEGATIVE); UR KETONES (Dip) NEGATIVE (NEGATIVE); UR LEUKOCYTE ESTERASE (Dip) TRACE Leu/ul (NEGATIVE); UR NITRITE (Dip) NEGATIVE (NEGATIVE); UR RBC 2 /HPF (0-5); UR SPECIFIC GRAVITY (Dip) 1.006 (1.003-1.030); UR TOTAL PROTEIN (Dip) NEGATIVE (NEGATIVE); UR UROBILINOGEN (Dip) NEGATIVE (NEGATIVE); UR WBC 2 /HPF (0-5)
[2018-06-04] MEDS ORDERED: traMADol 50 MG TAB (20:06)
[2018-06-04] MEDS: traZODone 50 MG TAB PO (20:53)
[2018-06-04] MEDS: ONDANSETRON 4 MG INJ IV (23:19)
[2018-06-04] MEDS: ZOLPIDEM 5 MG TAB PO (23:26)
[2018-06-05] MEDS: HYDROmorphONE 2 MG/ML SYG IV ×8 (00:56→23:11)
[2018-06-05] MEDS: SOD CHLORIDE 0.9% 1,000 ML IV ×2 (00:57→18:25)
[2018-06-05] MEDS: LORAZEPAM 0.5 MG TAB PO ×4 (01:42→21:35)
[2018-06-05] MEDS: PANTOPRAZOLE (EC) 40 MG TAB PO (04:28)
[2018-06-05] MEDS: predniSONE 10 MG TAB PO (08:17)
[2018-06-05] MEDS: VENLAFAXINE 75 MG TABLET PO (08:17)
[2018-06-05] MEDS: NICOTINE (21 MG/24 HR) PATCH TRANSDERM (08:59)
[2018-06-05 09:34] LABS: ADD MAN DIFF? NO
[2018-06-05 09:36] LABS: WHITE BLOOD COUNT 6.5 10^3/ul (4.8-10.8)
[2018-06-05 09:36] LABS: BASOPHILS % 0.5 % (0.0-2.0); EOSINOPHILS # 0.4 10^3/ul (0.0-0.5); EOSINOPHILS % 5.6 % (0.0-7.0); HEMATOCRIT 34.1 % (37.0-47.0); HEMOGLOBIN 11.4 g/dl (12.0-16.0); LYMPHOCYTES # 0.7 10^3/ul (0.8-2.9); LYMPHOCYTES % 11.1 % (15.0-51.0); MEAN CORPUSCULAR HEMOGLOBIN 33.2 pg (29.0-33.0); MEAN CORPUSCULAR HGB CONC 33.4 g/dl (32.0-37.0); MEAN CORPUSCULAR VOLUME 99.4 fl (82.0-101.0); MEAN PLATELET VOLUME 10.5 fl (7.4-10.4); MONOCYTE # 1.1 10^3/ul (0.3-0.9); NEUTROPHIL # 4.2 10^3/ul (1.6-7.5); NEUTROPHILS % 65.5 % (39.0-77.0); PLATELET COUNT 349 10^3/UL (140-415); RED BLOOD COUNT 3.43 10^6/ul (4.20-5.40); RED CELL DISTRIBUTION WIDTH 14.3 % (11.5-14.5)
[2018-06-05 09:54] LABS: ANION GAP 6 (5-13); BLOOD UREA NITROGEN 13 mg/dl (7-20); CALCIUM 8.5 mg/dl (8.4-10.2); CARBON DIOXIDE 21 mmol/L (21-31); CHLORIDE 112 mmol/L (97-110); CREATININE 2.49 mg/dl (0.44-1.00); Estimated GFR 24 mL/min (>60); GLUCOSE 80 mg/dl (70-220); POTASSIUM 3.3 mmol/L (3.5-5.1); SODIUM 139 mmol/L (135-144)
[2018-06-05 10:26] LABS: CREATINE KINASE < 20 IU/L (23-200)
[2018-06-05] MEDS: ONDANSETRON 4 MG INJ IV ×2 (13:10→20:42)
[2018-06-05] MEDS: DIPHENHYDRAMINE 50 MG INJ IV ×2 (15:25→21:35)
[2018-06-05] MEDS: POTASSIUM CHLORIDE (SR) 10 MEQ TAB PO (18:24)
[2018-06-05] MEDS: traZODone 50 MG TAB PO (20:04)
[2018-06-05] MEDS: ZOLPIDEM 5 MG TAB PO (23:12)
[2018-06-05] MEDS: NACL 0.9% 3 ML SYG IV (23:36)
[2018-06-06] MEDS: HYDROmorphONE 2 MG/ML SYG IV ×8 (02:15→22:35)
[2018-06-06] MEDS: DIPHENHYDRAMINE 50 MG INJ IV ×4 (04:38→22:33)
[2018-06-06] MEDS: SOD CHLORIDE 0.9% 1,000 ML IV ×2 (05:33→12:41)
[2018-06-06] MEDS: PANTOPRAZOLE (EC) 40 MG TAB PO (05:55)
[2018-06-06 07:15] LABS: ALBUMIN 2.9 g/dl (3.3-4.9); ALBUMIN/GLOBULIN RATIO 1.03; ALKALINE PHOSPHATASE 92 IU/L (42-121); ANION GAP 11 (5-13); ASPARTATE AMINO TRANSFERASE 18 IU/L (15-46); BLOOD UREA NITROGEN 15 mg/dl (7-20); CALCIUM 8.3 mg/dl (8.4-10.2); CARBON DIOXIDE 21 mmol/L (21-31); CHLORIDE 110 mmol/L (97-110); CREATININE 2.52 mg/dl (0.44-1.00); Estimated GFR 24 mL/min (>60); GLUCOSE 107 mg/dl (70-220); POTASSIUM 3.6 mmol/L (3.5-5.1); SODIUM 142 mmol/L (135-144); TOTAL PROTEIN 5.7 g/dl (6.1-8.1)
[2018-06-06 07:18] LABS: ALANINE AMINOTRANSFERASE < 6 IU/L (13-69)
[2018-06-06] MEDS: VENLAFAXINE 75 MG TABLET PO (08:31)
[2018-06-06] MEDS: LORAZEPAM 0.5 MG TAB PO ×2 (08:31→15:15)
[2018-06-06] MEDS: predniSONE 10 MG TAB PO (08:32)
[2018-06-06] MEDS: NICOTINE (21 MG/24 HR) PATCH TRANSDERM (08:33)
[2018-06-06] MEDS: traZODone 50 MG TAB PO (20:37)
[2018-06-06] MEDS: ZOLPIDEM 5 MG TAB PO (20:37)
[2018-06-07] MEDS: LORAZEPAM 0.5 MG TAB PO ×4 (00:49→22:52)
[2018-06-07] MEDS: HYDROmorphONE 2 MG/ML SYG IV ×8 (01:35→22:52)
[2018-06-07] MEDS: hydrALAzine 20 MG INJ IV (02:08)
[2018-06-07] MEDS: SOD CHLORIDE 0.9% 1,000 ML IV ×2 (03:54→04:38)
[2018-06-07] MEDS: DIPHENHYDRAMINE 50 MG INJ IV ×4 (04:37→19:51)
[2018-06-07] MEDS: PANTOPRAZOLE (EC) 40 MG TAB PO (05:08)
[2018-06-07] MEDS: NICOTINE (21 MG/24 HR) PATCH TRANSDERM (08:12)
[2018-06-07] MEDS: predniSONE 10 MG TAB PO (08:12)
[2018-06-07] MEDS: VENLAFAXINE 75 MG TABLET PO (08:12)
[2018-06-07 09:10] LABS: ANION GAP 7 (5-13); BLOOD UREA NITROGEN 13 mg/dl (7-20); CALCIUM 8.2 mg/dl (8.4-10.2); CARBON DIOXIDE 21 mmol/L (21-31); CHLORIDE 110 mmol/L (97-110); CREATININE 2.27 mg/dl (0.44-1.00); Estimated GFR 27 mL/min (>60); GLUCOSE 85 mg/dl (70-220); POTASSIUM 3.1 mmol/L (3.5-5.1); SODIUM 138 mmol/L (135-144)
[2018-06-07] MEDS: POTASSIUM CHLORIDE 20 MEQ POWDER FOR ORAL SOLN GTB (15:42)
[2018-06-07] MEDS: AMLODIPINE 10 MG TAB PO (15:42)
[2018-06-07] MEDS: ONDANSETRON 4 MG INJ IV (15:53)
[2018-06-07] MEDS: METHADONE (1 MG/ML 5 ML PO UD SYG) PO (20:44)
[2018-06-07] MEDS: traZODone 50 MG TAB PO (20:44)
[2018-06-08] MEDS: DIPHENHYDRAMINE 50 MG INJ IV ×4 (01:55→20:32)
[2018-06-08] MEDS: HYDROmorphONE 2 MG/ML SYG IV ×8 (01:55→23:33)
[2018-06-08] MEDS: PANTOPRAZOLE (EC) 40 MG TAB PO (05:32)
[2018-06-08 06:25] LABS: ADD MAN DIFF? NO
[2018-06-08 06:32] LABS: WHITE BLOOD COUNT 6.9 10^3/ul (4.8-10.8)
[2018-06-08 06:32] LABS: BASOPHILS % 0.1 % (0.0-2.0); EOSINOPHILS # 0.1 10^3/ul (0.0-0.5); EOSINOPHILS % 1.9 % (0.0-7.0); HEMATOCRIT 32.8 % (37.0-47.0); LYMPHOCYTES # 0.8 10^3/ul (0.8-2.9); MEAN CORPUSCULAR HEMOGLOBIN 33.6 pg (29.0-33.0); MEAN CORPUSCULAR HGB CONC 33.5 g/dl (32.0-37.0); MEAN CORPUSCULAR VOLUME 100.3 fl (82.0-101.0); MEAN PLATELET VOLUME 10.7 fl (7.4-10.4); MONOCYTES % 14.1 % (0.0-11.0); NEUTROPHILS % 72.6 % (39.0-77.0); PLATELET COUNT 300 10^3/UL (140-415); RED BLOOD COUNT 3.27 10^6/ul (4.20-5.40); RED CELL DISTRIBUTION WIDTH 14.6 % (11.5-14.5)
[2018-06-08 07:06] LABS: ANION GAP 7 (5-13); BLOOD UREA NITROGEN 15 mg/dl (7-20); CALCIUM 8.2 mg/dl (8.4-10.2); CARBON DIOXIDE 23 mmol/L (21-31); CHLORIDE 109 mmol/L (97-110); CREATININE 2.14 mg/dl (0.44-1.00); Estimated GFR 29 mL/min (>60); GLUCOSE 92 mg/dl (70-220); POTASSIUM 3.5 mmol/L (3.5-5.1); SODIUM 139 mmol/L (135-144)
[2018-06-08 07:15] LABS: MAGNESIUM 1.2 mg/dl (1.7-2.5)
[2018-06-08 07:15] LABS: PHOSPHORUS 3.8 mg/dl (2.5-4.9)
[2018-06-08] MEDS: predniSONE 10 MG TAB PO (08:03)
[2018-06-08] MEDS: METHADONE (1 MG/ML 5 ML PO UD SYG) PO ×2 (08:04→20:06)
[2018-06-08] MEDS: VENLAFAXINE 75 MG TABLET PO (08:04)
[2018-06-08] MEDS: NICOTINE (21 MG/24 HR) PATCH TRANSDERM (08:05)
[2018-06-08] MEDS: AMLODIPINE 10 MG TAB PO (08:05)
[2018-06-08] MEDS: LORAZEPAM 0.5 MG TAB PO ×3 (10:23→22:56)
[2018-06-08] MEDS: ACETAMINOPHEN 325 MG TAB PO (17:18)
[2018-06-08] MEDS: traZODone 50 MG TAB PO (20:05)
[2018-06-09] MEDS: HYDROmorphONE 2 MG/ML SYG IV ×9 (02:31→23:35)
[2018-06-09] MEDS: DIPHENHYDRAMINE 50 MG INJ IV ×4 (02:32→20:22)
[2018-06-09] MEDS: ONDANSETRON 4 MG INJ IV (03:18)
[2018-06-09] MEDS: PANTOPRAZOLE (EC) 40 MG TAB PO (05:34)
[2018-06-09] MEDS: LORAZEPAM 0.5 MG TAB PO ×3 (06:05→19:33)
[2018-06-09] MEDS: AMLODIPINE 10 MG TAB PO (08:09)
[2018-06-09] MEDS: VENLAFAXINE 75 MG TABLET PO (08:09)
[2018-06-09] MEDS: predniSONE 10 MG TAB PO (08:09)
[2018-06-09] MEDS: NICOTINE (21 MG/24 HR) PATCH TRANSDERM (08:09)
[2018-06-09] MEDS: METHADONE (1 MG/ML 5 ML PO UD SYG) PO ×4 (08:11→21:00)
[2018-06-09 11:38] LABS: ANION GAP 8 (5-13); BLOOD UREA NITROGEN 16 mg/dl (7-20); CALCIUM 8.3 mg/dl (8.4-10.2); CARBON DIOXIDE 28 mmol/L (21-31); CHLORIDE 101 mmol/L (97-110); CREATININE 1.81 mg/dl (0.44-1.00); Estimated GFR 35 mL/min (>60); GLUCOSE 82 mg/dl (70-220); POTASSIUM 3.4 mmol/L (3.5-5.1); SODIUM 137 mmol/L (135-144)
[2018-06-09] MEDS: MAGNESIUM SULFATE 2 GM/50 ML 50 ML IVPB (17:36)
[2018-06-09] MEDS: POTASSIUM CHLORIDE (SR) 20 MEQ TAB PO (17:36)
[2018-06-09] MEDS: traZODone 50 MG TAB PO (21:00)
[2018-06-09] MEDS: ZOLPIDEM 5 MG TAB PO (23:45)
[2018-06-10] MEDS: LORAZEPAM 0.5 MG TAB PO ×3 (01:38→18:42)
[2018-06-10] MEDS: DIPHENHYDRAMINE 50 MG INJ IV ×4 (02:29→20:32)
[2018-06-10] MEDS: HYDROmorphONE 2 MG/ML SYG IV ×6 (02:30→17:30)
[2018-06-10] MEDS: PANTOPRAZOLE (EC) 40 MG TAB PO (05:30)
[2018-06-10] MEDS: predniSONE 10 MG TAB PO (08:25)
[2018-06-10] MEDS: POTASSIUM CHLORIDE (SR) 20 MEQ TAB PO (08:25)
[2018-06-10] MEDS: NICOTINE (21 MG/24 HR) PATCH TRANSDERM (08:25)
[2018-06-10] MEDS: VENLAFAXINE 75 MG TABLET PO (08:25)
[2018-06-10] MEDS: METHADONE (1 MG/ML 5 ML PO UD SYG) PO ×3 (08:26→20:05)
[2018-06-10] MEDS: AMLODIPINE 10 MG TAB PO (08:26)
[2018-06-10 08:47] LABS: ANION GAP 10 (5-13); BLOOD UREA NITROGEN 22 mg/dl (7-20); CALCIUM 8.3 mg/dl (8.4-10.2); CARBON DIOXIDE 32 mmol/L (21-31); CHLORIDE 95 mmol/L (97-110); CREATININE 1.62 mg/dl (0.44-1.00); Estimated GFR 40 mL/min (>60); GLUCOSE 83 mg/dl (70-220); SODIUM 137 mmol/L (135-144)
[2018-06-10] MEDS ORDERED: DIPHENHYD/MYLANTA/LIDO (PO SYG) PO (13:30)
[2018-06-10] MEDS: ONDANSETRON 4 MG INJ IV (14:19)
[2018-06-10 15:24] LABS: ADD UMIC YES; UR ASCORBIC ACID NEGATIVE (NEGATIVE); UR BACTERIA FEW /HPF (NONE SEEN); UR BILIRUBIN (Dip) NEGATIVE (NEGATIVE); UR BLOOD (Dip) NEGATIVE (NEGATIVE); UR CLARITY CLEAR (CLEAR); UR COLOR COLORLESS (YELLOW); UR GLUCOSE (Dip) NEGATIVE (NEGATIVE); UR KETONES (Dip) NEGATIVE (NEGATIVE); UR LEUKOCYTE ESTERASE (Dip) TRACE Leu/ul (NEGATIVE); UR NITRITE (Dip) NEGATIVE (NEGATIVE); UR RBC 7 /HPF (0-5); UR SPECIFIC GRAVITY (Dip) 1.005 (1.003-1.030); UR TOTAL PROTEIN (Dip) NEGATIVE (NEGATIVE); UR UROBILINOGEN (Dip) NEGATIVE (NEGATIVE); UR WBC 4 /HPF (0-5)
[2018-06-10] MEDS: HYDROmorphONE 2 MG TAB PO (20:04)
[2018-06-10] MEDS: traZODone 50 MG TAB PO (20:04)
[2018-06-10] MEDS: ZOLPIDEM 5 MG TAB PO (21:47)
[2018-06-11] MEDS: HYDROmorphONE 2 MG TAB PO ×6 (00:01→21:47)
[2018-06-11] MEDS: LORAZEPAM 0.5 MG TAB PO ×4 (01:19→20:27)
[2018-06-11] MEDS: DIPHENHYDRAMINE 50 MG INJ IV ×5 (02:23→20:27)
[2018-06-11] MEDS: PANTOPRAZOLE (EC) 40 MG TAB PO (05:46)
[2018-06-11] MEDS: POTASSIUM CHLORIDE (SR) 20 MEQ TAB PO (08:35)
[2018-06-11] MEDS: METHADONE (1 MG/ML 5 ML PO UD SYG) PO ×3 (08:36→20:27)
[2018-06-11] MEDS: NICOTINE (21 MG/24 HR) PATCH TRANSDERM (08:36)
[2018-06-11] MEDS: predniSONE 10 MG TAB PO (08:36)
[2018-06-11] MEDS: VENLAFAXINE 75 MG TABLET PO (08:36)
[2018-06-11] MEDS: AMLODIPINE 10 MG TAB PO (08:37)
[2018-06-11 10:18] LABS: ADD MAN DIFF? NO
[2018-06-11 10:21] LABS: WHITE BLOOD COUNT 9.9 10^3/ul (4.8-10.8)
[2018-06-11 10:21] LABS: BASOPHILS % 0.2 % (0.0-2.0); EOSINOPHILS # 0.2 10^3/ul (0.0-0.5); EOSINOPHILS % 1.5 % (0.0-7.0); HEMATOCRIT 32.8 % (37.0-47.0); LYMPHOCYTES # 0.9 10^3/ul (0.8-2.9); LYMPHOCYTES % 8.8 % (15.0-51.0); MEAN CORPUSCULAR HEMOGLOBIN 33.5 pg (29.0-33.0); MEAN CORPUSCULAR HGB CONC 33.5 g/dl (32.0-37.0); MEAN PLATELET VOLUME 11.6 fl (7.4-10.4); MONOCYTES % 10.5 % (0.0-11.0); NEUTROPHIL # 7.7 10^3/ul (1.6-7.5); NEUTROPHILS % 78.5 % (39.0-77.0); PLATELET COUNT 244 10^3/UL (140-415); RED BLOOD COUNT 3.28 10^6/ul (4.20-5.40); RED CELL DISTRIBUTION WIDTH 15.1 % (11.5-14.5)
[2018-06-11] MEDS: ALTEPLASE (CATHFLO) 2 MG INJ CATHETER (10:58)
[2018-06-11] MEDS: ACETAMINOPHEN 325 MG TAB PO (11:39)
[2018-06-11 15:09] LABS: POTASSIUM 3.3 mmol/L (3.5-5.1); SODIUM 139 mmol/L (135-144)
[2018-06-11 15:10] LABS: ANION GAP 7 (5-13); CARBON DIOXIDE 23 mmol/L (21-31); CHLORIDE 109 mmol/L (97-110)
[2018-06-11 15:11] LABS: BLOOD UREA NITROGEN 19 mg/dl (7-20); CREATININE 1.31 mg/dl (0.44-1.00); Estimated GFR 51 mL/min (>60); GLUCOSE 94 mg/dl (70-220)
[2018-06-11 15:12] LABS: CALCIUM 6.8 mg/dl (8.4-10.2)
[2018-06-11] MEDS: HYDROmorphONE 2 MG/ML SYG IV (15:35)
[2018-06-11] MEDS: POTASSIUM CHLORIDE (SR) 10 MEQ TAB PO (17:29)
[2018-06-11] MEDS: traZODone 50 MG TAB PO (20:27)
[2018-06-12] MEDS: DIPHENHYDRAMINE 50 MG INJ IV ×2 (02:36→08:46)
[2018-06-12] MEDS: HYDROmorphONE 2 MG TAB PO ×6 (02:37→12:53)
[2018-06-12] MEDS: LORAZEPAM 0.5 MG TAB PO (03:53)
[2018-06-12] MEDS: PANTOPRAZOLE (EC) 40 MG TAB PO (05:40)
[2018-06-12] MEDS: NICOTINE (21 MG/24 HR) PATCH TRANSDERM (08:48)
[2018-06-12] MEDS: AMLODIPINE 10 MG TAB PO (08:49)
[2018-06-12] MEDS: VENLAFAXINE 75 MG TABLET PO (08:49)
[2018-06-12] MEDS: POTASSIUM CHLORIDE (SR) 20 MEQ TAB PO (08:49)
[2018-06-12] MEDS: predniSONE 10 MG TAB PO (08:49)
[2018-06-12] MEDS: METHADONE (1 MG/ML 5 ML PO UD SYG) PO (08:50)
[2018-06-12] MEDS: HALOPERIDOL 5 MG INJ IM (10:00)
[2018-06-12] MEDS: LORAZEPAM 4 MG/ML VIAL IV (10:20)
[2018-06-12] MEDS ORDERED: LORAZEPAM 4 MG/ML VIAL IV (12:30)
== END 2018-06-12 12:15 | disposition left against medical advice (07) | DRG 871 ==
LOC: 5EC 06-03 12:30 → E/R 12:09 → 2NE 14:44
PROC: 0CJS8ZZ Inspection of Larynx, Via Natural or Artificial Opening Endoscopic (ICD-10-PCS; principal; 2018-05-25)
DX: A41.9 Sepsis, unspecified organism (principal); N17.0 Acute kidney failure with tubular necrosis; L03.221 Cellulitis of neck; L03.211 Cellulitis of face; F33.2 Major depressive disorder, recurrent severe without psychotic features; C10.9 Malignant neoplasm of oropharynx, unspecified; F41.9 Anxiety disorder, unspecified; D63.0 Anemia in neoplastic disease; K21.9 Gastro-esophageal reflux disease without esophagitis; R35.0 Frequency of micturition; I10 Essential (primary) hypertension; E78.5 Hyperlipidemia, unspecified; G89.3 Neoplasm related pain (acute) (chronic); Z93.1 Gastrostomy status; E87.6 Hypokalemia; T36.8X5A Adverse effect of other systemic antibiotics, initial encounter; Y92.230 Patient room in hospital as the place of occurrence of the external cause
CPT/HCPCS: 36415; 70460; 70486; 70491; 71045; 73510; 73560; 76775; 80048; 80053; 80202; 81001; 82550; 82962; 83605; 83735; 84100; 85025; 85610; 85730; 87040; 87070; 87081; 87086; 93306; 99285-25

== ENCOUNTER 2018-06-12 18:39 | Inpatient (IN) | payer OTHER ==
[2018-06-12 20:18] LABS: ADD MAN DIFF? NO
[2018-06-12 20:20] LABS: ABNORMAL IP MESSAGE 1; BASOPHILS % 0.1 % (0.0-2.0); HEMOGLOBIN 9.3 g/dl (12.0-16.0); LYMPHOCYTES # 0.4 10^3/ul (0.8-2.9); LYMPHOCYTES % 3.8 % (15.0-51.0); MEAN CORPUSCULAR HEMOGLOBIN 32.7 pg (29.0-33.0); MEAN CORPUSCULAR HGB CONC 33.2 g/dl (32.0-37.0); MEAN CORPUSCULAR VOLUME 98.6 fl (82.0-101.0); MEAN PLATELET VOLUME 10.3 fl (7.4-10.4); MONOCYTE # 0.5 10^3/ul (0.3-0.9); MONOCYTES % 4.7 % (0.0-11.0); NEUTROPHIL # 10.1 10^3/ul (1.6-7.5); NEUTROPHILS % 90.7 % (39.0-77.0); PLATELET COUNT 272 10^3/UL (140-415); POSITIVE DIFF @See below; RED BLOOD COUNT 2.84 10^6/ul (4.20-5.40); RED CELL DISTRIBUTION WIDTH 14.6 % (11.5-14.5)
[2018-06-12 20:20] LABS: WHITE BLOOD COUNT 11.2 10^3/ul (4.8-10.8)
[2018-06-12 20:38] LABS: ALANINE AMINOTRANSFERASE 9 IU/L (13-69); ALBUMIN 3.8 g/dl (3.3-4.9); ALBUMIN/GLOBULIN RATIO 1.08; ALKALINE PHOSPHATASE 71 IU/L (42-121); ANION GAP 14 (5-13); ASPARTATE AMINO TRANSFERASE 22 IU/L (15-46); BILIRUBIN,INDIRECT 0.1 mg/dl (0-1.1); BILIRUBIN,TOTAL 0.1 mg/dl (0.2-1.3); BLOOD UREA NITROGEN 24 mg/dl (7-20); CALCIUM 8.4 mg/dl (8.4-10.2); CARBON DIOXIDE 24 mmol/L (21-31); CHLORIDE 95 mmol/L (97-110); Estimated GFR 47 mL/min (>60); GLUCOSE 94 mg/dl (70-220); POTASSIUM 4.6 mmol/L (3.5-5.1); SODIUM 133 mmol/L (135-144); TOTAL PROTEIN 7.3 g/dl (6.1-8.1)
[2018-06-12 20:40] LABS: ACETAMINOPHEN < 10.0 ug/ml (10.0-30.0); SALICYLATE < 1.0 mg/dl (5.0-30.0)
[2018-06-13] MEDS: SODIUM CHLORIDE 0.9% 1L BAG IV* (00:31)
[2018-06-13] MEDS: morphine 4 MG/ML VIAL IV (08:32)
[2018-06-13] MEDS ORDERED: METHADONE 5 MG TAB PO (13:00)
[2018-06-13] MEDS: HYDROmorphONE 4 MG TAB PO ×3 (13:15→20:20)
[2018-06-13] MEDS: METHADONE (1 MG/ML 5 ML PO UD SYG) PO ×2 (13:52→22:09)
[2018-06-13] MEDS: LORAZEPAM 1 MG TAB PO (14:56)
[2018-06-13] MEDS: VENLAFAXINE 37.5 MG TAB PO (17:02)
[2018-06-13 20:01] LABS: ADD UMIC YES; UR ASCORBIC ACID NEGATIVE (NEGATIVE); UR BILIRUBIN (Dip) NEGATIVE (NEGATIVE); UR BLOOD (Dip) NEGATIVE (NEGATIVE); UR CLARITY CLEAR (CLEAR); UR COLOR YELLOW (YELLOW); UR GLUCOSE (Dip) NEGATIVE (NEGATIVE); UR KETONES (Dip) NEGATIVE (NEGATIVE); UR LEUKOCYTE ESTERASE (Dip) TRACE Leu/ul (NEGATIVE); UR NITRITE (Dip) NEGATIVE (NEGATIVE); UR RBC 1 /HPF (0-5); UR SPECIFIC GRAVITY (Dip) 1.011 (1.003-1.030); UR SQUAMOUS EPITHELIAL CELL FEW /HPF (FEW); UR TOTAL PROTEIN (Dip) NEGATIVE (NEGATIVE); UR UROBILINOGEN (Dip) NEGATIVE (NEGATIVE); UR WBC 4 /HPF (0-5)
[2018-06-13 20:12] LABS: AMPHETAMINE/METHAMPHETAMINE Negative (NEGATIVE); BARBITURATES Negative (NEGATIVE); BENZODIAZEPINES Negative (NEGATIVE); CANNABINOIDS Positive (NEGATIVE); COCAINE Negative (NEGATIVE)
[2018-06-13] MEDS: GABAPENTIN 300 MG CAP PO (20:20)
[2018-06-13 20:23] LABS: OPIATES Positive (NEGATIVE)
[2018-06-14] MEDS: HYDROmorphONE 4 MG TAB PO ×6 (00:56→21:09)
[2018-06-14] MEDS: LORAZEPAM 1 MG TAB PO ×5 (00:57→21:53)
[2018-06-14 05:17] LABS: ADD MAN DIFF? NO
[2018-06-14 05:21] LABS: WHITE BLOOD COUNT 7.3 10^3/ul (4.8-10.8)
[2018-06-14 05:21] LABS: BASOPHIL # 0.1 10^3/ul (0.0-0.1); BASOPHILS % 0.8 % (0.0-2.0); EOSINOPHILS # 0.3 10^3/ul (0.0-0.5); EOSINOPHILS % 4.1 % (0.0-7.0); HEMATOCRIT 37.3 % (37.0-47.0); HEMOGLOBIN 12.2 g/dl (12.0-16.0); LYMPHOCYTES # 1.1 10^3/ul (0.8-2.9); LYMPHOCYTES % 14.6 % (15.0-51.0); MEAN CORPUSCULAR HEMOGLOBIN 32.9 pg (29.0-33.0); MEAN CORPUSCULAR HGB CONC 32.7 g/dl (32.0-37.0); MEAN CORPUSCULAR VOLUME 100.5 fl (82.0-101.0); MEAN PLATELET VOLUME 10.7 fl (7.4-10.4); MONOCYTES % 13.5 % (0.0-11.0); NEUTROPHIL # 4.8 10^3/ul (1.6-7.5); NEUTROPHILS % 66.2 % (39.0-77.0); PLATELET COUNT 297 10^3/UL (140-415); RED BLOOD COUNT 3.71 10^6/ul (4.20-5.40); RED CELL DISTRIBUTION WIDTH 14.8 % (11.5-14.5)
[2018-06-14 05:40] LABS: ANION GAP 10 (5-13); BLOOD UREA NITROGEN 18 mg/dl (7-20); CALCIUM 8.7 mg/dl (8.4-10.2); CARBON DIOXIDE 27 mmol/L (21-31); CHLORIDE 102 mmol/L (97-110); CREATININE 1.38 mg/dl (0.44-1.00); Estimated GFR 48 mL/min (>60); GLUCOSE 81 mg/dl (70-220); SODIUM 139 mmol/L (135-144)
[2018-06-14 05:41] LABS: PHOSPHORUS 5.7 mg/dl (2.5-4.9)
[2018-06-14 05:41] LABS: MAGNESIUM 1.2 mg/dl (1.7-2.5); POTASSIUM 3.7 mmol/L (3.5-5.1)
[2018-06-14] MEDS: METHADONE (1 MG/ML 5 ML PO UD SYG) PO ×3 (06:21→21:10)
[2018-06-14] MEDS: AMLODIPINE 10 MG TAB PO (08:27)
[2018-06-14] MEDS: GABAPENTIN 300 MG CAP PO ×2 (08:27→21:10)
[2018-06-14] MEDS: predniSONE 10 MG TAB PO (08:27)
[2018-06-14] MEDS: VENLAFAXINE 37.5 MG TAB PO (09:29)
[2018-06-14] MEDS: HYDROmorphONE 2 MG/ML SYG IV ×2 (11:33→17:12)
[2018-06-14] MEDS: MAGNESIUM SULFATE 3 GM in DEXTROSE 5% 100 ML IVPB (12:04)
[2018-06-14] MEDS ORDERED: DIPHENHYDRAMINE 25 MG CAP PO (13:30)
[2018-06-14] MEDS: DIPHENHYDRAMINE 50 MG INJ IV (15:19)
[2018-06-14] MEDS: ONDANSETRON 4 MG TAB PO (21:20)
[2018-06-15] MEDS: HYDROmorphONE 4 MG TAB PO ×7 (00:13→23:33)
[2018-06-15] MEDS: LORAZEPAM 1 MG TAB PO ×5 (02:09→21:25)
[2018-06-15] MEDS: DIPHENHYDRAMINE 25 MG CAP PO ×3 (03:11→17:38)
[2018-06-15] MEDS: METHADONE (1 MG/ML 5 ML PO UD SYG) PO ×3 (06:13→21:25)
[2018-06-15] MEDS: VENLAFAXINE 37.5 MG TAB PO (08:33)
[2018-06-15] MEDS: predniSONE 10 MG TAB PO (08:35)
[2018-06-15] MEDS: AMLODIPINE 10 MG TAB PO (08:35)
[2018-06-15] MEDS: GABAPENTIN 300 MG CAP PO ×2 (08:35→21:25)
[2018-06-15] MEDS: ENOXAPARIN 40 MG/0.4 ML SYG SC (13:40)
[2018-06-15] MEDS: ALTEPLASE (CATHFLO) 2 MG INJ CATHETER (18:30)
[2018-06-15] MEDS: HYDROmorphONE 2 MG/ML SYG IV (18:40)
[2018-06-15] MEDS: ONDANSETRON 4 MG TAB PO (18:47)
[2018-06-16 01:31] LABS: AMPHETAMINE/METHAMPHETAMINE NEGATIVE (NEGATIVE); BARBITURATES NEGATIVE (NEGATIVE); BENZODIAZEPINES NEGATIVE (NEGATIVE); COCAINE NEGATIVE (NEGATIVE); OPIATES POSITIVE (NEGATIVE)
[2018-06-16 01:39] LABS: CANNABINOIDS NEGATIVE (NEGATIVE)
[2018-06-16] MEDS: LORAZEPAM 1 MG TAB PO ×2 (01:43→08:01)
[2018-06-16] MEDS: HYDROmorphONE 4 MG TAB PO ×2 (02:26→08:01)
[2018-06-16] MEDS: HYDROmorphONE 2 MG/ML SYG IV ×4 (05:35→23:56)
[2018-06-16] MEDS: METHADONE (1 MG/ML 5 ML PO UD SYG) PO ×3 (06:37→20:57)
[2018-06-16] MEDS: predniSONE 10 MG TAB PO (08:00)
[2018-06-16] MEDS: VENLAFAXINE 37.5 MG TAB PO (08:00)
[2018-06-16] MEDS: DIPHENHYDRAMINE 25 MG CAP PO ×3 (08:00→23:56)
[2018-06-16] MEDS: GABAPENTIN 300 MG CAP PO ×2 (08:00→20:53)
[2018-06-16] MEDS: AMLODIPINE 10 MG TAB PO (08:01)
[2018-06-16] MEDS: ENOXAPARIN 40 MG/0.4 ML SYG SC (08:02)
[2018-06-16] MEDS: clonAZEPAM 0.5 MG TAB PO ×2 (12:06→17:23)
[2018-06-16] MEDS: ACETAMINOPHEN 325 MG TAB PO (14:08)
[2018-06-16] MEDS: ONDANSETRON 4 MG TAB PO (22:21)
[2018-06-17] MEDS: clonAZEPAM 0.5 MG TAB PO ×5 (01:01→23:42)
[2018-06-17] MEDS: HYDROmorphONE 2 MG/ML SYG IV ×6 (02:34→23:42)
[2018-06-17] MEDS: ONDANSETRON 4 MG TAB PO ×2 (04:01→18:31)
[2018-06-17] MEDS: METHADONE (1 MG/ML 5 ML PO UD SYG) PO ×3 (06:27→22:02)
[2018-06-17 08:25] LABS: ADD MAN DIFF? NO
[2018-06-17 08:27] LABS: BASOPHILS % 0.1 % (0.0-2.0); EOSINOPHILS # 0.1 10^3/ul (0.0-0.5); EOSINOPHILS % 1.4 % (0.0-7.0); HEMOGLOBIN 9.7 g/dl (12.0-16.0); LYMPHOCYTES # 0.9 10^3/ul (0.8-2.9); MEAN CORPUSCULAR HEMOGLOBIN 32.9 pg (29.0-33.0); MEAN CORPUSCULAR HGB CONC 32.3 g/dl (32.0-37.0); MEAN CORPUSCULAR VOLUME 101.7 fl (82.0-101.0); MEAN PLATELET VOLUME 11.2 fl (7.4-10.4); MONOCYTES % 12.3 % (0.0-11.0); NEUTROPHIL # 6.2 10^3/ul (1.6-7.5); NEUTROPHILS % 74.8 % (39.0-77.0); PLATELET COUNT 286 10^3/UL (140-415); RED BLOOD COUNT 2.95 10^6/ul (4.20-5.40); RED CELL DISTRIBUTION WIDTH 14.2 % (11.5-14.5)
[2018-06-17 08:27] LABS: WHITE BLOOD COUNT 8.3 10^3/ul (4.8-10.8)
[2018-06-17 08:57] LABS: MAGNESIUM 1.8 mg/dl (1.7-2.5)
[2018-06-17 08:57] LABS: PHOSPHORUS 2.7 mg/dl (2.5-4.9)
[2018-06-17] MEDS: GABAPENTIN 300 MG CAP PO ×2 (08:59→20:55)
[2018-06-17] MEDS: AMLODIPINE 10 MG TAB PO (09:00)
[2018-06-17] MEDS: predniSONE 20 MG TAB PO (09:00)
[2018-06-17] MEDS: PAROXETINE 20 MG TAB PO (09:00)
[2018-06-17 09:02] LABS: BLOOD UREA NITROGEN 29 mg/dl (7-20); CHLORIDE 87 mmol/L (97-110); CREATININE 1.07 mg/dl (0.44-1.00); Estimated GFR > 60 mL/min (>60); GLUCOSE 95 mg/dl (70-220); POTASSIUM 3.1 mmol/L (3.5-5.1); SODIUM 137 mmol/L (135-144)
[2018-06-17] MEDS: ENOXAPARIN 40 MG/0.4 ML SYG SC (09:02)
[2018-06-17 09:10] LABS: ANION GAP 11 (5-13)
[2018-06-17 09:15] LABS: CARBON DIOXIDE 39 mmol/L (21-31)
[2018-06-17] MEDS: DIPHENHYDRAMINE 25 MG CAP PO (11:35)
[2018-06-17] MEDS: POTASSIUM CHLORIDE (SR) 20 MEQ TAB PO (17:07)
[2018-06-17] MEDS: DIPHENHYDRAMINE 50 MG INJ IV ×2 (17:07→22:57)
[2018-06-18] MEDS: HYDROmorphONE 2 MG/ML SYG IV ×5 (04:03→20:14)
[2018-06-18] MEDS: clonAZEPAM 0.5 MG TAB PO ×3 (06:03→17:14)
[2018-06-18] MEDS: METHADONE (1 MG/ML 5 ML PO UD SYG) PO ×3 (06:03→21:25)
[2018-06-18] MEDS: DIPHENHYDRAMINE 50 MG INJ IV ×4 (07:08→20:14)
[2018-06-18] MEDS: predniSONE 20 MG TAB PO (07:54)
[2018-06-18] MEDS: PAROXETINE 20 MG TAB PO (07:54)
[2018-06-18] MEDS: ENOXAPARIN 40 MG/0.4 ML SYG SC (07:55)
[2018-06-18] MEDS: GABAPENTIN 300 MG CAP PO ×2 (07:55→20:14)
[2018-06-18] MEDS: AMLODIPINE 10 MG TAB PO (07:55)
[2018-06-18] MEDS: ONDANSETRON 4 MG TAB PO (20:14)
[2018-06-19] MEDS: HYDROmorphONE 2 MG/ML SYG IV ×4 (00:13→11:26)
[2018-06-19] MEDS: clonAZEPAM 0.5 MG TAB PO ×2 (00:59→05:30)
[2018-06-19] MEDS: DIPHENHYDRAMINE 50 MG INJ IV ×2 (02:15→08:04)
[2018-06-19] MEDS: METHADONE (1 MG/ML 5 ML PO UD SYG) PO (05:30)
[2018-06-19] MEDS: PAROXETINE 20 MG TAB PO (08:03)
[2018-06-19] MEDS: GABAPENTIN 300 MG CAP PO (08:03)
[2018-06-19] MEDS: predniSONE 20 MG TAB PO (08:03)
[2018-06-19] MEDS: AMLODIPINE 10 MG TAB PO (08:04)
[2018-06-19] MEDS: ENOXAPARIN 40 MG/0.4 ML SYG SC (08:15)
== END 2018-06-19 11:45 | DRG 947 ==
LOC: 5EC 06-14 07:26 → PP2 23:20 → E/R 18:39
DX: G89.3 Neoplasm related pain (acute) (chronic) (principal); N17.0 Acute kidney failure with tubular necrosis; L03.211 Cellulitis of face; E86.0 Dehydration; R13.10 Dysphagia, unspecified; C10.9 Malignant neoplasm of oropharynx, unspecified; E78.5 Hyperlipidemia, unspecified; I10 Essential (primary) hypertension; K21.9 Gastro-esophageal reflux disease without esophagitis; R41.0 Disorientation, unspecified; D63.0 Anemia in neoplastic disease; E87.6 Hypokalemia; F41.9 Anxiety disorder, unspecified; Z66 Do not resuscitate; F17.210 Nicotine dependence, cigarettes, uncomplicated; Z91.19 Patient's noncompliance with other medical treatment and regimen; Z88.0 Allergy status to penicillin
CPT/HCPCS: 36415; 80048; 80053; 80307; 81001; 83735; 84100; 85025; 87081; 99285-25